=== PATIENT | male | born 1975 | race African-American/Black ===

== ENCOUNTER 2022-05-09 14:03 | Emergency (ER) | payer SELFPAY ==
[2022-05-09] MEDS ORDERED: Ibuprofen 600 MG Tab PO ONE (15:14)
[2022-05-09] MEDS ORDERED: Amoxicillin/Clavulanate K 875-125 MG Tab PO ONE (15:14)
[2022-05-09] MEDS ORDERED: Diphtheria,Pertussis(Acell),Tetanus Vaccine 0.5 ML Syringe IM ONE (15:14)
[2022-05-09] MEDS ORDERED: Bacitracin Oint 1 GM U/D Packet TOP ONE (15:16)
== END 2022-05-09 16:11 | disposition home or self-care (01) ==
LOC: MW.ED 14:03
DX: S51.851A Open bite of right forearm, initial encounter (principal); S31.33XA Puncture wound without foreign body of scrotum and testes, initial encounter; I10 Essential (primary) hypertension; Z88.1 Allergy status to other antibiotic agents; Z88.8 Allergy status to other drugs, medicaments and biological substances; Z23 Encounter for immunization; Z79.899 Other long term (current) drug therapy; W54.0XXA Bitten by dog, initial encounter
CPT/HCPCS: 90471; 90715; 99283; A9270

== ENCOUNTER 2023-01-28 12:40 | Emergency (ER) | payer BC ==
[2023-01-28] MEDS ORDERED: Ketorolac 60 MG/2 ML SDV IM ONE (13:12)
[2023-01-28] MEDS ORDERED: Lidocaine 4% 1 each Patch TOP PRN (13:12)
== END 2023-01-28 14:28 | disposition home or self-care (01) ==
LOC: MW.ED 12:40
DX: M54.42 Lumbago with sciatica, left side (principal); I10 Essential (primary) hypertension; J45.909 Unspecified asthma, uncomplicated; Z86.16 Personal history of COVID-19; Z88.1 Allergy status to other antibiotic agents; Z88.8 Allergy status to other drugs, medicaments and biological substances; Z79.899 Other long term (current) drug therapy
CPT/HCPCS: 72100; 96372; 99283; A9270; J1885